=== PATIENT | male | born 1970 | race Caucasian/White ===

== ENCOUNTER 2020-05-16 14:31 | Emergency (ER) | payer SELFPAY, OTHER ==
[~2020-05-16] VITALS: Ht 167.6 cm; Wt 74.8 kg
--- NOTE | 2020-05-16 15:10 | NUR ---
ED Nurse Note: Pt brought in by BENITA martinez, in custody for medical clearance. Pt has DM and requests medication. Pt denies symtoms. Respirations even and unlabored on room air. Vitals stable as documented. A+Ox4 speaking in complete sentences.
[2020-05-16 15:36] VITALS: BP 149/84
--- NOTE | 2020-05-16 15:37 | Emergency Room Report ---
History of Present Illness General Chief Complaint: Medical Clearance Source: Patient Present Illness HPI Pt. presents to the ED for medical clearance for incarceration. Pt. denies having any symptoms at this time. He denies chest pain, palpitations, shortness of breath, cough, fevers or chills, open wounds/bleeding, skin infections. Patient denies trauma or fall. He reports history of diabetes and reports that he takes insulin. He does report not always taking his insulin. Patient denies nausea, vomiting or abdominal pain/tenderness. Allergies: Coded Allergies: No Known Allergies (Unverified , 05/16/20) COVID-19 Screening Contact w/high risk pt: No Experienced COVID-19 symptoms?: No COVID-19 Testing performed GRADE [employer] CENTER MARKER: No Patient History Past Medical History: see triage record, DM Past Surgical History: none Pertinent Family History: none Immunizations: UTD Reviewed Nursing Documentation: PMH: Agreed; PSxH: Agreed Nursing Documentation-PMH Past Medical History: No History, Except For Hx Hypertension: Yes Hx Diabetes: Yes History Of Psychiatric Problem: Yes Review of Systems All Other Systems: negative except mentioned in HPI Physical Exam Vital Signs Date Time Temp Pulse Resp B/P (MAP) Pulse Ox O2 Delivery O2 Flow Rate FiO2 05/16/20 15:02 98.2 71 18 157/92 (113) 98 Room Air Sp02 EP Interpretation: reviewed, normal General Appearance: no apparent distress, alert, GCS 15, non-toxic Head: normocephalic, atraumatic Eyes: bilateral eye normal inspection, bilateral eye PERRL ENT: hearing grossly normal, normal voice, other - poor dentition Neck: full range of motion, no bony tend Respiratory: chest non-tender, lungs clear, normal breath sounds, no respiratory distress, no accessory muscle use, no wheezing, speaking full sentences Cardiovascular #1: regular rate, rhythm, no edema, normal capillary refill Cardiovascular #2: 2+ radial (R), 2+ radial (L) Gastrointestinal: normal bowel sounds, non tender, soft Musculoskeletal: back normal, normal range of motion, gait/station normal, non- tender Neurologic: alert, motor strength/tone normal, oriented x3, sensory intact, responsive, speech normal Psychiatric: judgement/insight normal Skin: no rash, normal color Medical Decision Making PA Attestation Dr. Benites is my supervising Physician whom patient management has been discussed with. Diagnostic Impression: Primary Impression: Medical clearance for incarceration Additional Impression: History of insulin dependent diabetes mellitus ER Course Pt. presents to the ED for medical clearance for incarceration. Pt. denies having any symptoms at this time. He denies chest pain, palpitations, shortness of breath, cough, fevers or chills, open wounds/bleeding, skin infections. Patient denies trauma or fall. He reports history of diabetes and reports that he takes insulin. He does report not always taking his insulin. Patient denies nausea, vomiting or abdominal pain/tenderness. Ddx considered but are not limited to Head Trauma, [place], ACS, SI/HI, URI, SAH, Fractures, Dislocations, Tazer barbs, Abrasions. Vital signs: are WNL, pt. is afebrile H&PE are most consistent with: normal limited physical examination. Patient is nontoxic in appearance in no acute distress alert and oriented. ORDERS: -Accu-Chek: 275 ED INTERVENTIONS: --6 units of human insulin subQ. -I do not identify an emergent condition at this time. With current presentation, pt. is stable for close outpatient follow up and conservative treatment. D/w pt. to return promptly to ED with worsening or new symptoms.- Pt. verbalizes' understanding and agreement with proposed treatment plan. DISCHARGE: At this time pt. is stable for d/c to law enforcement. Will provide printed patient care instructions, and any necessary prescriptions. Care plan and follow up instructions have been discussed with the patient prior to discharge. Last Vital Signs Date Time Temp Pulse Resp B/P (MAP) Pulse Ox O2 Delivery O2 Flow Rate FiO2 05/16/20 15:13 71 18 Room Air 05/16/20 15:02 98.2 157/92 (240) 98 Disposition: HOME, SELF-CARE Condition: Stable Referrals: [facility] Departure Forms: Snf Clearance Patient Instructions: Medical Screening Exam Additional Instructions: Take medications as directed. Follow up with a Primary Care Provider in 3-5 days, even if your symptoms have resolved. --Please review list of primary care clinics, if you do not already have a primary care provider Return sooner to ED if new symptoms occur, or current symptoms become worse. - Please note that this Emergency Department Report was dictated using [employer] security analyst technology software, occasionally this can lead to erroneous entry secondary to interpretation by the dictation equipment. Yudelka Pérez May 16, 2020 15:37
[2020-05-16] MEDS ORDERED: Insulin Human Regular 100units/ml 3ml SUBQ ONE (15:45)
[2020-05-16 16:00] VITALS: BP 141/78
== END 2020-05-16 16:00 | disposition home or self-care (01) ==
LOC: EMR 15:38
DX: Z02.89 Encounter for other administrative examinations (principal); E11.9 Type 2 diabetes mellitus without complications; Z79.4 Long term (current) use of insulin; I10 Essential (primary) hypertension
CPT/HCPCS: 82962; 96372; 99283; J1815